=== PATIENT | male | born 1975 | race Caucasian/White ===

== ENCOUNTER 2017-08-24 21:08 | Emergency (ER) | payer BC ==
[~2017-08-24] VITALS: Ht 190.5 cm; Wt 105.0 kg
[~2017-08-24 21:08] MED LIST: ACTEMRA80 MG/4 ML IV; AUGMENTIN875 MG PO; BACTRIM DS1 TAB PO; CEPHALEXIN500 MG PO; DARVOCET-N 100100 MG OR; ENBREL50 MG/ML; FLEXERIL PO; LORTAB 5/3255 MG PO; LORTAB 7.57.5 MG OR; METHYLPRED4 MG PO; OMNARIS; ORENCIA250 MG IV; PREDNISONE5 MG PO; ULTRAM50 M1 PO; XELJANZ5 MG PO; XYZAL5 MG PO
[2017-08-24 21:56] VITALS: BP 125/89
== END 2017-08-24 21:56 | disposition home or self-care (01) | DRG 605 ==
LOC: ED 21:08
DX: S91.332A Puncture wound without foreign body, left foot, initial encounter (principal); W22.8XXA Striking against or struck by other objects, initial encounter

== ENCOUNTER → 2018-06-27 | Outpatient (REF) | payer BC | END | disposition home or self-care (01) | DRG 443 | LOC: ULTRASND 13:18 | PROVIDERS: ATTEND Internal Medicine Gastroenterology | DX: R94.5 Abnormal results of liver function studies (principal); K21.9 Gastro-esophageal reflux disease without esophagitis ==

== ENCOUNTER 2024-06-27 11:27 | Emergency (ER) | payer BC ==
[2024-06-27] VITALS (7 sets, daily range): BP systolic 122–144; BP diastolic 94–105
[~2024-06-27] VITALS: Ht 190.5 cm; Wt 113.0 kg
[2024-06-27] MEDS ORDERED: ACYCLOVIR 400 MG TAB PO ONE (12:10)
[2024-06-27 12:58] LABS: BASO% 0.4 % (0-3); EOS% 1.3 % (0-8); HEMOGLOBIN 14.9 g/dl (14.0-18.0); IMMATURE GRANULOCYTES 2.2 % (0.0-5.0); LYMPH% 20.5 % (15-41); MEAN CELL VOLUME 93.5 fL CALC (80.0-100.0); MEAN CORPUSCULAR HGB 30.3 pG CALC (26.0-32.0); MEAN CORPUSCULAR HGB CONC 32.4 g/dL CAL (32.0-36.0); MONO% 13.6 % (2-13); NEUT# 2.88 thou/uL (1.82-7.42); RED BLOOD COUNT 4.92 mill/uL (4.70-6.10); RED CELL DISTRI WIDTH 12.8 % (11.5-15.5)
[2024-06-27 13:00] LABS: URINE BLOOD DIPSTICK Small (NEGATIVE); URINE GLUCOSE - DIPSTICK Negative (NEGATIVE); URINE KETONE Negative (NEGATIVE); URINE LEUK ESTERASE Negative (NEGATIVE); URINE NITRITE - DIPSTICK Negative (Negative); URINE PH 5.5 (4.5-8.0); URINE PROTEIN - DIPSTICK Negative (NEG-TRACE); URINE SPECIFIC GRAVITY >=1.030; URINE UROBILINOGEN - DIPSTICK 0.2 E.U./dL (0.2)
[2024-06-27 13:05] LABS: URINE COLOR Yellow
[2024-06-27 13:06] LABS: URINE EPITHELIAL CELLS FEW EPI/hpf (0-FEW); URINE RBC 0-2 RBC/hpf (0-5)
[2024-06-27 13:16] LABS: ALBUMIN 4.7 g/dL (3.2-5.0); POTASSIUM 3.8 mmol/l (3.5-5.1); TOTAL PROTEIN 7.7 g/dL (6.3-8.2)
[2024-06-27 13:21] LABS: BILIRUBIN, TOTAL 1.4 mg/dL (0.2-1.3)
[2024-06-27] MEDS ORDERED: VALTREX1 GM PO (14:32)
[2024-06-27] MEDS ORDERED: AMOX/K CLAV875 M1 PO (14:32)
[2024-06-27] MEDS ORDERED: PERCOCET 5/325M1 TAB PO (14:32)
[2024-06-27] MEDS ORDERED: PROBIOTIC DAILY1 CAP PO (14:32)
[2024-06-27] MEDS ORDERED: MUPIROCIN2 % EX (14:32)
[2024-06-30] MEDS ORDERED: MUPIROCIN2 % EX (17:32)
== END 2024-06-27 15:17 | disposition home or self-care (01) | DRG 596 ==
LOC: ED 11:27
PROVIDERS: Emergency Medicine
DX: B02.9 Zoster without complications (principal); M06.9 Rheumatoid arthritis, unspecified; Z79.60 Long term (current) use of unspecified immunomodulators and immunosuppressants